=== PATIENT | female | born 1975 | race Hispanic/Latino ===

== ENCOUNTER → 2022-11-22 | Outpatient (CLI) | payer OTHER | END | disposition home or self-care (01) | LOC: RAH 09:26 | PROVIDERS: ATTEND Internal Medicine | DX: R92.8 Other abnormal and inconclusive findings on diagnostic imaging of breast (principal); N64.4 Mastodynia | CPT/HCPCS: 76641; 77065 ==

== ENCOUNTER → 2024-09-20 | Outpatient (CLI) | payer BC ==
[~2024-09-20] MED LIST: IOHEXOL 350 MG/ML 100ML INFUS..BTL IV ONE
--- NOTE | 2024-09-20 09:02 | HMCIMG ---
CT ABDOMEN/PELVIS W/CONTRAST HISTORY: Umbilical hernia COMPARISON: None TECHNIQUE: Multiple sequential axial images of the abdomen and pelvis were obtained from the dome of the diaphragm through symphysis pubis. Patient was given 100 cc of Omnipaque through intravenous route. Oral contrast was given. FINDINGS: No pleural effusion is seen bilaterally. There is no evidence of parenchymal disease or pulmonary nodule of the visualized lower lungs. Degenerative changes of the thoracolumbar spine are present. The heart is not enlarged. Liver measures 19 cm. There is periumbilical hernia with fat content. No bowel obstruction is seen. The liver, spleen, adrenal glands and pancreas are unremarkable. There is no evidence of hydronephrosis bilaterally. No evidence of renal stone is seen. Fecal material is seen in the colon. There are normal size retroperitoneal and mesenteric lymph nodes. No ascites is seen. Appendix is not seen limiting evaluation. No definite CT evidence of acute appendicitis is seen. Pelvic sidewalls are symmetric bilaterally. Bladder is poorly distended. IMPRESSION: 1. Umbilical hernia with fat content. No bowel obstruction is seen. CT was performed with one or more following dose reduction techniques: automated exposure control, adjustment of the mA and kv according to patient's size, or use of a iterative reconstruction technique.
== END | disposition home or self-care (01) ==
LOC: RAH 08:06
PROVIDERS: ATTEND Surgery
DX: K42.9 Umbilical hernia without obstruction or gangrene (principal); R10.9 Unspecified abdominal pain; M47.815 Spondylosis without myelopathy or radiculopathy, thoracolumbar region
CPT/HCPCS: 74177; Q9967

== ENCOUNTER 2024-11-07 06:19 | Day surgery (SDC) | payer BC ==
[2024-11-04 09:09] LABS: BASOPHILS # (AUTO) 0.05 K/uL (0.00-0.20); BASOPHILS % (AUTO) 0.9 % (0.0-5.0); EOSINOPHILS # (AUTO) 0.06 K/uL (0.00-0.70); EOSINOPHILS % (AUTO) 1.1 % (0.0-8.0); IMMATURE GRANULOCYTE ABSOLUTE 0.01 K/uL (0-1); LYMPHOCYTES # (AUTO) 2.6 K/uL (1.0-4.8); LYMPHOCYTES % (AUTO) 47.1 % (21.0-51.0); MEAN CORPUSCULAR HEMOGLOBIN 30.8 pg (27.0-33.0); MEAN CORPUSCULAR HGB CONC 32.9 g/dL (32.0-36.0); MEAN CORPUSCULAR VOLUME 93.8 fL (79-99); MONOCYTES # (AUTO) 0.4 K/uL (0.1-1.0); MONOCYTES % (AUTO) 6.4 % (3.0-13.0); NEUTROPHILS # (AUTO) 2.5 K/uL (1.8-7.7); NEUTROPHILS % (AUTO) 44.3 % (40.0-77.0); PLATELET COUNT (AUTO) 266 K/uL (130-400); RED BLOOD CELL COUNT(AUTO) 4.48 MIL/uL (4.00-5.50); RED CELL DISTRIBUTION WIDTH 12.2 % (11.0-15.5); WHITE BLOOD COUNT (AUTO) 5.6 K/uL (4.8-10.8)
[2024-11-04 09:16] LABS: CREATININE 0.7 mg/dL (0.5-1.0); POTASSIUM 4.3 mmol/L (3.5-5.1)
[2024-11-04 09:19] LABS: INR 1.03 (0.85-1.15); PROTHROMBIN TIME 10.9 SEC (9.6-11.6)
[2024-11-04 09:20] LABS: PARTIAL THROMBOPLASTIN TIME 28.8 SEC (26.3-35.5)
[2024-11-04 09:35] VITALS: BP 126/72; PULSE 63; RESP 18; TEMP 98.1
--- NOTE | 2024-11-04 11:12 | EKG ---
[facility] Test Date: 2024-11-04 Test Time: 09:00:39 Pat Name: YOJANA BATES Department: [facility] Room: Gender: F Developmental Specialist: [id number] : 1975 Requested By: SARIKA ALVAREZ Order Number: [id number] Reading MD: Ghazala Schuster Measurements Intervals West Rate: 55 P: -4 PA: 151 QRS: 48 QRSD: 99 T: 1 QT: 413 QTc: 395 Interpretive Statements Sinus rhythm No previous ECG available for comparison Electronically Signed On 11-04-2024 14:25:01 CDT by Ghazala Schuster Please click the below link to view image of tracing.
[~2024-11-07] VITALS: Ht 170.2 cm; Wt 94.2 kg
[2024-11-07] VITALS (17 sets, daily range): BP systolic 108–130; BP diastolic 46–86; PULSE 49–57; RESP 16–22; TEMP 97–97.9
[~2024-11-07 06:19] MED LIST changes: +ASHWAGANDHA PO; +BUSP5TAB3 PO; +FURO20TA4 PO; -IOHEXOL 350 MG/ML 100ML INFUS..BTL IV ONE; +OMEGA PO; +PIOG15TA66 PO; +VITAMIN D PO; +WEGOVY SQ
[2024-11-07] MEDS ORDERED: GABAPENTIN 300 MG CAPSULE ONE (06:59)
[2024-11-07] MEDS ORDERED: acetaMINOPHEN 100 ML ONE (06:59)
[2024-11-07] MEDS ORDERED: FAMOTIDINE 20MG VIAL IV ONE (06:59)
[2024-11-07] MEDS ORDERED: proPOFol 10 MG/ML 20ML VIAL IV ONE (07:13)
[2024-11-07] MEDS ORDERED: FENTanyl CITRate PF 50 MCG/1 ML 2ML VIAL ONE (07:13)
[2024-11-07] MEDS ORDERED: ketaMINE 50MG/ML SYRINGE 50 MG/ML DISP.SYRIN ONE (07:14)
[2024-11-07] MEDS ORDERED: LIDOCAINE PF 100MG/5ML (2%) SYRINGE 5ML ONE (07:14)
[2024-11-07] MEDS ORDERED: rocuRONium bROMide 10MG/1ML 5ML VL ONE (07:14)
[2024-11-07] MEDS: ceFAZolin SODIUM 2 GM VIAL ONE (07:48)
[2024-11-07] MEDS: LACTATED RINGERS 1000ML 1,000 ML IV ONE (07:48)
[2024-11-07] MEDS ORDERED: dexaMETHasone SOD PHOSPHATE 10MG/ML 1ML VIAL ONE (08:21)
[2024-11-07] MEDS ORDERED: ondanSETRON 4MG INJ ONE (08:21)
[2024-11-07] MEDS: BUPIvacaine/PF 0.5% 30ML VIAL ONE (08:58)
[2024-11-07] MEDS ORDERED: phenylEPHRINE HCL 10 MG/ML 1ML VIAL IV ONE (09:05)
[2024-11-07] MEDS ORDERED: NEOSTIGMINE METHYLSULFATE 1MG/ML IV ONE (09:06)
[2024-11-07] MEDS ORDERED: GLYCOPYRROLATE 0.2 MG/ML 5 ML VIAL ONE (09:06)
--- NOTE | 2024-11-07 10:26 | OP ---
Operative Note: DATE OF PROCEDURE: 11/07/24 SURGEON: SARIKA ALVAREZ MD BUHR DRESSER: Louis Alvarez MD PA-C ANESTHESIA: General and local ANESTHESIOLOGIST/NURSE OFFICE: [facility] anesthesia team PREOPERATIVE DIAGNOSIS: Symptomatic ventral umbilical hernia POSTOPERATIVE DIAGNOSIS: As above. Incarcerated omental fat. SYNOPSIS: Hernia repair with mesh reinforcement PROCEDURE: Robotic assisted umbilical hernia repair with mesh underlay reinforcement, 3 cm defect ESTIMATED BLOOD LOSS: Minimal, less than 20 cc INDICATIONS: As above DESCRIPTION OF PROCEDURE: After standard precautions and preparations were undertaken a Veress needle and optical trocar were used to enter the abdominal cavity. All other instruments were placed under direct vision. The robotic system was docked in the standard fashion. We began our dissection by utilizing monopolar scissors to remove the incarcerated omental fat. The edges of the hernia defect could be appreciated and were found to be roughly 3 cm in greatest diameter. We utilized permanent barbed suture to close the defect in two directions. During the closure the backside of the umbilicus was pexy to the fascial closure with care taken not to buttonhole. An [address] mesh product was used to buttress the repair. The mesh was sutured in place to prevent mesh migration and maximize tissue contact with the mesh. This was done at a decreased intra-abdominal pressure of roughly 8 mmHg. At the end of the case all instrument counts were verified as correct including needles and sponges. SARIKA ALVAREZ MD November 07, 2024 10:26
--- NOTE | 2024-11-07 12:49 | PN ---
GENERAL SURGERY PROGRESS NOTE Date/Time Patient Seen: [11/07/2024 at 10:30 a.m. ] Problem List: [ ] Interval History: [Postop day 0. Pain tolerable with p.r.n. medication. ] Physical Examination: ABD: [Incisions clean, dry and intact, Dermabond in place Vital Signs (last 8hr) Date Time Temp Pulse Resp B/P (MAP) Pulse Ox O2 Delivery O2 Flow Rate FiO2 11/07/24 11:00 97.2 52 22 121/72 94 Room Air 11/07/24 10:55 51 22 130/75 94 Room Air 11/07/24 10:50 57 21 123/70 94 Room Air 11/07/24 10:45 50 21 125/66 93 Room Air 11/07/24 10:40 50 21 124/56 94 Room Air 11/07/24 10:35 50 21 118/46 99 Nonrebreathing Mask 15.0 100 11/07/24 10:30 50 16 108/47 99 Nonrebreathing Mask 15.0 100 11/07/24 10:25 50 20 128/71 99 Nonrebreathing Mask 15.0 100 11/07/24 10:20 52 21 117/59 99 Nonrebreathing Mask 15.0 100 11/07/24 10:15 53 20 129/66 99 Nonrebreathing Mask 15.0 100 11/07/24 10:10 52 20 122/68 99 Nonrebreathing Mask 15.0 100 11/07/24 10:05 50 18 115/70 98 Nonrebreathing Mask 15.0 100 11/07/24 10:00 97.0 49 18 126/65 98 Nonrebreathing Mask 15.0 100 11/07/24 06:40 97.9 57 18 121/86 98 Room Air Laboratory: [ ] Chemistry Labs: Test 11/07/24 10:07 Range/Units Whole Blood Glucose 134 H 70-110 MG/DL Diagnostics / Radiology: [Copy/Paste Echos/Imaging Report here] Impression and Plan: [Plan is for discharge home today as long as patient tolerating p.o., ambulatory and pain under control. Discussed with patient and family. They understand and agree.] GABBY ALVAREZ November 07, 2024 12:49
== END 2024-11-07 12:00 | disposition home or self-care (01) ==
LOC: DAH 06:19
PROVIDERS: ATTEND Surgery
DX: K42.9 Umbilical hernia without obstruction or gangrene (principal); I10 Essential (primary) hypertension; F41.9 Anxiety disorder, unspecified; Z79.01 Long term (current) use of anticoagulants; Z90.710 Acquired absence of both cervix and uterus; Z98.890 Other specified postprocedural states
CPT/HCPCS: 93005; 80048; 85025; 85610; 85730; 86850; 86900; 86901; 36415; 49594; 82948 ×2; A4223 ×2; A4600; A6260; S2900; A4663; A4215 ×2; J7120; J3490 ×4; J3010; J1100; J2003; J2704; J2405; J2710; J0665; J2371; J0690; A6206; A4930 ×2; C1781; A4213; A4222; A4221; A4216